=== PATIENT | male | born 1955 | race Caucasian/White ===

== ENCOUNTER 2022-04-04 17:03 | Inpatient (IN) | payer MEDICARE ==
[~2022-04-04] VITALS: Ht 180.3 cm; Wt 106.1 kg
[2022-04-04 23:47] LABS: HEMOGLOBIN 14.3 gm/dl (14.0-17.5); RED BLOOD COUNT 4.64 M/UL (4.20-5.50); WHITE BLOOD COUNT 13.6 K/UL (4.5-11.0)
[2022-04-05] MEDS ORDERED: METOPROLOL TAR100 MG PO (00:30)
[2022-04-05] MEDS ORDERED: IMIPRAMINE HCL50 MG PO (00:31)
[2022-04-05] MEDS ORDERED: AMLODIPINE BESY10 MG PO (00:31)
[2022-04-05] MEDS ORDERED: GLIMEPIRIDE1 MG PO (00:32)
[2022-04-05] MEDS ORDERED: METFORMIN HCL1000 MG PO (00:32)
[2022-04-05] MEDS ORDERED: LOW DOSE ASPIRI81 MG PO (00:34)
[2022-04-05 00:41] LABS: BUN/CREATININE RATIO 21 (0-10)
[2022-04-05 07:00] LABS: HEMOGLOBIN 13.7 gm/dl (14.0-17.5); RED BLOOD COUNT 4.45 M/UL (4.20-5.50); WHITE BLOOD COUNT 12.8 K/UL (4.5-11.0)
--- NOTE | 2022-04-05 14:29 | NUR ---
REPORT CALLED TO GLORIA GUIDO ON [facility] AT [facility]. [facility]UL[facility] CONTACTED FOR TRANSPORT. CHART COPIED AND ALL RECORDS PREPARED FOR TRANSFER.
== END 2022-04-05 16:36 | disposition short-term general hospital (02) | DRG 281 ==
LOC: PROG CARE 17:03
PROVIDERS: Internal Medicine; ADMIT Internal Medicine
PROC: 4A023N7 Measurement of Cardiac Sampling and Pressure, Left Heart, Percutaneous Approach (ICD-10-PCS; principal; 2022-04-05)
PROC: B2111ZZ Fluoroscopy of Multiple Coronary Arteries using Low Osmolar Contrast (ICD-10-PCS; 2022-04-05)
DX: I21.4 Non-ST elevation (NSTEMI) myocardial infarction (principal); I16.1 Hypertensive emergency; I10 Essential (primary) hypertension; E11.9 Type 2 diabetes mellitus without complications; E87.6 Hypokalemia; E83.42 Hypomagnesemia; Z98.49 Cataract extraction status, unspecified eye; Z98.890 Other specified postprocedural states; Z87.891 Personal history of nicotine dependence; Z82.49 Family history of ischemic heart disease and other diseases of the circulatory system; Z80.0 Family history of malignant neoplasm of digestive organs; Z79.82 Long term (current) use of aspirin; Z79.84 Long term (current) use of oral hypoglycemic drugs
CPT/HCPCS: 36415; 80048; 80061; 82550; 82553; 82962; 83036; 83735; 84439; 84443; 84484; 85025; 85610; 85730; 93005; C1769; C1887; C1894; J1644; J2250; J2270; J3010; J7040; Q9967